=== PATIENT | male | born 1990 | race Caucasian/White ===

== ENCOUNTER → 2020-06-20 | Emergency (ER) | payer OTHER ==
[~2020-06-20] MED LIST: LIDOCAINE 1% MDV 20ML VIAL As Ordered ONE
== END | disposition home or self-care (01) ==
LOC: M ED 22:10
DX: S61.211A Laceration without foreign body of left index finger without damage to nail, initial encounter (principal); W27.8XXA Contact with other nonpowered hand tool, initial encounter; Y92.099 Unspecified place in other non-institutional residence as the place of occurrence of the external cause; Y93.9 Activity, unspecified; Y99.9 Unspecified external cause status

== ENCOUNTER 2020-07-15 19:34 | Emergency (ER) | payer OTHER ==
[~2020-07-15] VITALS: Ht 175.3 cm; Wt 69.8 kg
[2020-07-15 19:34] VITALS: BP 127/69
[2020-07-15 20:21] LABS: BASO % 0.5 % (0.0-1.0); EOS # 0.5 10^3/uL (0.0-0.5); EOS % 5.8 % (0.0-3.0); HEMATOCRIT 41.8 % (42.0-52.0); HEMOGLOBIN 14.7 g/dl (13.5-17.5); LYMPH # 2.7 10^3/uL (1.5-5.0); LYMPH % 32.8 % (24.0-44.0); MEAN CORPUSCULAR HEMOGLOBIN 31.7 pg (27.0-33.0); MEAN CORPUSCULAR HGB CONC 35.2 g/dl (32.0-36.5); MEAN CORPUSCULAR VOLUME 90.3 fl (80.0-96.0); MONO # 0.7 10^3/uL (0.0-0.8); MONO % 8.2 % (0.0-5.0); NEUTROPHILS # 4.2 10^3/uL (1.5-8.5); NEUTROPHILS % 52.5 % (36.0-66.0); PLATELET COUNT, AUTOMATED 221 10^3/uL (150-450); RED BLOOD COUNT 4.63 10^6/uL (4.30-6.10); WHITE BLOOD COUNT 8.1 10^3/uL (4.0-10.0)
[2020-07-15 20:49] LABS: BLOOD UREA NITROGEN 14 MG/DL (7-18); CALCIUM LEVEL 9.5 MG/DL (8.5-10.1); CARBON DIOXIDE LEVEL 32 MEQ/L (21-32); CHLORIDE LEVEL 104 MEQ/L (98-107); CPK CREATINE PHOSPHOKINASE 253 U/L (39-308); CREATININE FOR GFR 0.88 MG/DL (0.70-1.30); FREE T4 0.89 NG/DL (0.76-1.46); GLOMERULAR FILTRATION RATE > 60.0 (>60); GLUCOSE, FASTING 86 MG/DL (70-100); MB/CK RELATIVE INDEX 0.79 (< OR =4); POTASSIUM SERUM 3.8 MEQ/L (3.5-5.1); SODIUM LEVEL 138 MEQ/L (136-145); TROPONIN I < 0.02 NG/ML (< 0.10)
[2020-07-15 21:07] LABS: PROTHROMBIN TIME 13.4 SECONDS (11.8-14.0)
[2020-07-15 21:08] LABS: PARTIAL THROMBOPLASTIN TIME 29.4 SECONDS (25.0-38.4)
--- NOTE | 2020-07-15 21:25 | REPVR ---
PROCEDURE INFORMATION: Exam: XR Chest, 1 View Exam date and time: 07/15/2020 8:49 PM Age: 29 years old Clinical indication: Other: Chest pain TECHNIQUE: Imaging protocol: XR of the chest Views: 1 view. COMPARISON: No relevant prior studies available. FINDINGS: Lungs: Unremarkable. No consolidation. Pleural space: Unremarkable. No pleural effusion. No pneumothorax. Heart/Mediastinum: Unremarkable. No cardiomegaly. Bones/joints: Unremarkable. IMPRESSION: No acute findings. Electronically signed by: Thor Albrecht On 07/15/2020 21:25:23 PM
[2020-07-15 21:36] LABS: D-DIMER QUANT < 270 ng/ml (<500)
--- NOTE | 2020-07-21 19:31 | ECGEPIP ---
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
== END 2020-07-15 22:30 | disposition home or self-care (01) ==
LOC: M ED 19:34
DX: R07.9 Chest pain, unspecified (principal); G47.00 Insomnia, unspecified

== ENCOUNTER 2020-10-09 19:37 | Emergency (ER) | payer OTHER ==
[~2020-10-09] VITALS: Ht 172.7 cm; Wt 70.3 kg
[2020-10-09] MEDS ORDERED: NITROGLYCERIN 0.4 MG SUBL TABLET SL PRN (22:00)
[2020-10-09] MEDS ORDERED: ASPIRIN 81 MG CHEW TABLET PO ONE (22:00)
[2020-10-09 22:21] VITALS: BP 147/92
[2020-10-09 22:33] LABS: BASO % 0.4 % (0.0-1.0); EOS # 0.8 10^3/uL (0.0-0.5); EOS % 9.5 % (0.0-3.0); HEMATOCRIT 41.1 % (42.0-52.0); HEMOGLOBIN 14.1 g/dl (13.5-17.5); LYMPH # 3.3 10^3/uL (1.5-5.0); LYMPH % 40.5 % (24.0-44.0); MEAN CORPUSCULAR HEMOGLOBIN 30.7 pg (27.0-33.0); MEAN CORPUSCULAR HGB CONC 34.3 g/dl (32.0-36.5); MEAN CORPUSCULAR VOLUME 89.5 fl (80.0-96.0); MONO # 0.8 10^3/uL (0.0-0.8); MONO % 9.3 % (0.0-5.0); NEUTROPHILS # 3.2 10^3/uL (1.5-8.5); NEUTROPHILS % 40.2 % (36.0-66.0); PLATELET COUNT, AUTOMATED 249 10^3/uL (150-450); RED BLOOD COUNT 4.59 10^6/uL (4.30-6.10); WHITE BLOOD COUNT 8.1 10^3/uL (4.0-10.0)
--- NOTE | 2020-10-09 22:41 | REPVR ---
PROCEDURE INFORMATION: Exam: XR Chest, 2 Views Exam date and time: 10/09/2020 10:12 PM Age: 29 years old Clinical indication: Other: Cp; Additional info: Chest pain TECHNIQUE: Imaging protocol: XR of the chest Views: 2 views. COMPARISON: CR PORTABLE CHEST X-RAY 07/15/2020 8:47 PM FINDINGS: Lungs: Unremarkable. No consolidation. Pleural space: Unremarkable. No pleural effusion. No pneumothorax. Heart/Mediastinum: Unremarkable. No cardiomegaly. Bones/joints: Unremarkable. IMPRESSION: No acute findings. Electronically signed by: Thor Albrecht On 10/09/2020 22:41:26 PM
[2020-10-09 22:45] LABS: INR 0.94; PROTHROMBIN TIME 12.8 SECONDS (12.5-14.3)
[2020-10-09 23:15] VITALS: BP 115/60
[2020-10-09 23:24] LABS: ALBUMIN 4.3 GM/DL (3.2-5.2); ALT/SGPT 24 U/L (12-78); BILIRUBIN,DIRECT < 0.1 MG/DL (0.0-0.2); BILIRUBIN,TOTAL 0.4 MG/DL (0.2-1.0); BLOOD UREA NITROGEN 13 MG/DL (7-18); CALCIUM LEVEL 9.1 MG/DL (8.5-10.1); CARBON DIOXIDE LEVEL 28 MEQ/L (21-32); CHLORIDE LEVEL 105 MEQ/L (98-107); CPK CREATINE PHOSPHOKINASE 184 U/L (39-308); CREATININE FOR GFR 0.74 MG/DL (0.70-1.30); GLOMERULAR FILTRATION RATE > 60.0 (>60); GLUCOSE, FASTING 85 MG/DL (70-100); MB/CK RELATIVE INDEX 0.54 (< OR =4); NT-PRO BNP < 5 PG/ML (<125); POTASSIUM SERUM 4.5 MEQ/L (3.5-5.1); SODIUM LEVEL 140 MEQ/L (136-145); TOTAL PROTEIN 7.5 GM/DL (6.4-8.2); TROPONIN I < 0.02 NG/ML (< 0.10)
--- NOTE | 2020-10-10 16:39 | ECGEPIP ---
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
== END 2020-10-10 | disposition home or self-care (01) ==
LOC: M ED 19:37
DX: R07.89 Other chest pain (principal); R06.02 Shortness of breath

== ENCOUNTER 2022-06-06 15:12 | Emergency (ER) | payer BC, OTHER ==
[~2022-06-06] VITALS: Ht 177.8 cm; Wt 71.7 kg
[2022-06-06] MEDS ORDERED: HYDR-643 PO (15:18)
[2022-06-06] MEDS ORDERED: NS 1,000 ML IV ONE (16:40)
[2022-06-06 17:24] LABS: BASO % 0.4 % (0.0-1.0); EOS # 0.7 10^3/uL (0.0-0.5); HEMATOCRIT 42.3 % (42.0-52.0); HEMOGLOBIN 14.6 g/dl (13.5-17.5); LYMPH # 2.4 10^3/uL (1.5-5.0); MEAN CORPUSCULAR HEMOGLOBIN 30.9 pg (27.0-33.0); MEAN CORPUSCULAR HGB CONC 34.5 g/dl (32.0-36.5); MEAN CORPUSCULAR VOLUME 89.4 fl (80.0-96.0); MONO # 0.6 10^3/uL (0.0-0.8); MONO % 8.9 % (2.0-8.0); NEUTROPHILS # 3.5 10^3/uL (1.5-8.5); NEUTROPHILS % 48.4 % (36.0-66.0); PLATELET COUNT, AUTOMATED 231 10^3/uL (150-450); RED BLOOD COUNT 4.73 10^6/uL (4.30-6.10); WHITE BLOOD COUNT 7.2 10^3/uL (4.0-10.0)
[2022-06-06 17:51] LABS: ALBUMIN 4.6 GM/DL (3.2-5.2); ALT/SGPT 22 U/L (12-78); BILIRUBIN,DIRECT < 0.1 MG/DL (0.0-0.2); BILIRUBIN,TOTAL 0.4 MG/DL (0.2-1.0); C REACTIVE PROTEIN QUANTITATIV < 0.30 MG/DL (0.00-0.30); FREE T4 0.74 NG/DL (0.76-1.46); LIPASE 128 U/L (73-393); NT-PRO BNP 15 PG/ML (<125); TOTAL PROTEIN 7.7 GM/DL (6.4-8.2)
[2022-06-06 18:32] LABS: ERYTHROCYTE SEDIMENTATION RATE 4 mm/hr (0-15)
[2022-06-06] MEDS ORDERED: KETOROLAC 30 MG/ML 1ML VIAL IV ONE (19:05)
[2022-06-06] MEDS ORDERED: ISOVUE-370 76% 100ML VIAL As Ordered ONE (19:16)
[2022-06-06 21:13] VITALS: BP 129/72
== END 2022-06-06 21:29 | disposition home or self-care (01) ==
LOC: M ED 15:12
DX: R07.89 Other chest pain (principal); R42 Dizziness and giddiness; I45.19 Other right bundle-branch block; F41.9 Anxiety disorder, unspecified
CPT/HCPCS: 36415; 71275; 80047; 80076; 83690; 83880; 84439; 84443; 84484; 85025; 85652; 86140; 93005; 99284; J1885; Q9967

== ENCOUNTER 2022-08-04 12:50 | Emergency (ER) | payer BC ==
[~2022-08-04] VITALS: Ht 182.9 cm; Wt 72.2 kg
[~2022-08-04 12:50] MED LIST changes: +HYDR-643 PO; -LIDOCAINE 1% MDV 20ML VIAL As Ordered ONE
[2022-08-04] MEDS ORDERED: DULO1CAP4 PO (13:13)
[2022-08-04 15:44] LABS: GC DNA AMPLIFICATION NEGATIVE (NEGATIVE)
[2022-08-04 16:06] LABS: BASO % 0.5 % (0.0-1.0); EOS # 0.6 10^3/uL (0.0-0.5); EOS % 7.5 % (0.0-3.0); HEMATOCRIT 44.4 % (42.0-52.0); HEMOGLOBIN 15.5 g/dl (13.5-17.5); LYMPH # 2.4 10^3/uL (1.5-5.0); LYMPH % 28.9 % (24.0-44.0); MEAN CORPUSCULAR HEMOGLOBIN 31.4 pg (27.0-33.0); MEAN CORPUSCULAR HGB CONC 34.9 g/dl (32.0-36.5); MEAN CORPUSCULAR VOLUME 89.9 fl (80.0-96.0); MONO # 0.6 10^3/uL (0.0-0.8); MONO % 7.4 % (2.0-8.0); NEUTROPHILS # 4.6 10^3/uL (1.5-8.5); NEUTROPHILS % 55.6 % (36.0-66.0); PLATELET COUNT, AUTOMATED 256 10^3/uL (150-450); RED BLOOD COUNT 4.94 10^6/uL (4.30-6.10); WHITE BLOOD COUNT 8.4 10^3/uL (4.0-10.0)
[2022-08-04 16:47] VITALS: BP 137/71
== END 2022-08-04 17:02 | disposition home or self-care (01) ==
LOC: M ED 12:50
DX: R31.9 Hematuria, unspecified (principal); Z87.442 Personal history of urinary calculi

== ENCOUNTER 2022-08-18 00:31 | Emergency (ER) | payer BC ==
[~2022-08-18] VITALS: Ht 175.3 cm; Wt 70.9 kg
[~2022-08-18 00:31] MED LIST changes: +DULO1CAP4 PO
[2022-08-18 01:07] LABS: BASO % 0.5 % (0.0-1.0); EOS # 0.5 10^3/uL (0.0-0.5); HEMATOCRIT 42.1 % (42.0-52.0); HEMOGLOBIN 14.9 g/dl (13.5-17.5); LYMPH # 3.8 10^3/uL (1.5-5.0); LYMPH % 44.6 % (24.0-44.0); MEAN CORPUSCULAR HEMOGLOBIN 31.3 pg (27.0-33.0); MEAN CORPUSCULAR HGB CONC 35.4 g/dl (32.0-36.5); MEAN CORPUSCULAR VOLUME 88.4 fl (80.0-96.0); MONO # 0.8 10^3/uL (0.0-0.8); MONO % 9.2 % (2.0-8.0); NEUTROPHILS # 3.4 10^3/uL (1.5-8.5); NEUTROPHILS % 39.6 % (36.0-66.0); PLATELET COUNT, AUTOMATED 231 10^3/uL (150-450); RED BLOOD COUNT 4.76 10^6/uL (4.30-6.10); WHITE BLOOD COUNT 8.6 10^3/uL (4.0-10.0)
[2022-08-18 01:43] LABS: CPK CREATINE PHOSPHOKINASE 269 U/L (39-308)
[2022-08-18 02:01] LABS: ALBUMIN 4.7 GM/DL (3.2-5.2); ALT/SGPT 24 U/L (12-78); BILIRUBIN,DIRECT 0.1 MG/DL (0.0-0.2); BILIRUBIN,TOTAL 0.5 MG/DL (0.2-1.0); BLOOD UREA NITROGEN 14 MG/DL (7-18); CALCIUM LEVEL 9.9 MG/DL (8.5-10.1); CARBON DIOXIDE LEVEL 31 MEQ/L (21-32); CHLORIDE LEVEL 104 MEQ/L (98-107); CREATININE FOR GFR 0.88 MG/DL (0.70-1.30); GLOMERULAR FILTRATION RATE > 60.0 (>60); GLUCOSE, FASTING 87 MG/DL (70-100); POTASSIUM SERUM 3.8 MEQ/L (3.5-5.1); SODIUM LEVEL 140 MEQ/L (136-145); TOTAL PROTEIN 7.9 GM/DL (6.4-8.2)
[2022-08-18 04:22] VITALS: BP 124/65
[2022-08-18] MEDS ORDERED: NAPR-837 PO ×2 (05:13→05:14)
[2022-08-18 06:09] LABS: GC DNA AMPLIFICATION NEGATIVE (NEGATIVE)
== END 2022-08-18 05:42 | disposition home or self-care (01) ==
LOC: M ED 00:31
DX: N43.3 Hydrocele, unspecified (principal); F41.1 Generalized anxiety disorder; Z79.899 Other long term (current) drug therapy

== ENCOUNTER 2023-03-06 16:43 | Emergency (ER) | payer BC ==
[~2023-03-06] VITALS: Ht 175.3 cm; Wt 71.2 kg
[~2023-03-06 16:43] MED LIST changes: +NAPR-837 PO
[2023-03-06] MEDS ORDERED: FLON1SPR NARES (16:50)
[2023-03-06] MEDS ORDERED: LEXA1TAB (16:50)
[2023-03-06 18:28] LABS: BASO % 0.3 % (0.0-1.0); EOS # 0.4 10^3/uL (0.0-0.5); EOS % 5.5 % (0.0-3.0); HEMATOCRIT 44.6 % (42.0-52.0); HEMOGLOBIN 15.4 g/dl (13.5-17.5); LYMPH # 2.4 10^3/uL (1.5-5.0); LYMPH % 33.5 % (24.0-44.0); MEAN CORPUSCULAR HGB CONC 34.5 g/dl (32.0-36.5); MEAN CORPUSCULAR VOLUME 89.9 fl (80.0-96.0); MONO # 0.7 10^3/uL (0.0-0.8); MONO % 9.4 % (2.0-8.0); NEUTROPHILS # 3.7 10^3/uL (1.5-8.5); NEUTROPHILS % 51.2 % (36.0-66.0); PLATELET COUNT, AUTOMATED 248 10^3/uL (150-450); RED BLOOD COUNT 4.96 10^6/uL (4.30-6.10); WHITE BLOOD COUNT 7.3 10^3/uL (4.0-10.0)
[2023-03-06 18:52] LABS: ALBUMIN 4.8 G/DL (3.2-5.2); ALKALINE PHOSPHATASE 68 U/L (46-116); ALT/SGPT 22 U/L (7.0-40); AST/SGOT 34 U/L (<34); BILIRUBIN,TOTAL 0.5 MG/DL (0.3-1.2); BLOOD UREA NITROGEN 8 MG/DL (9-23); CALCIUM LEVEL 9.8 MG/DL (8.5-10.1); CARBON DIOXIDE LEVEL 32 MMOL/L (20-31); CHLORIDE LEVEL 104 MMOL/L (98-107); CREATININE FOR GFR 0.75 MG/DL (0.70-1.30); GLOMERULAR FILTRATION RATE > 60.0 (>60); GLUCOSE, FASTING 89 MG/DL (60-100); POTASSIUM SERUM 4.1 MMOL/L (3.5-5.1); SODIUM LEVEL 140 MMOL/L (136-145)
[2023-03-06 21:23] VITALS: BP 120/74
== END 2023-03-06 21:24 | disposition home or self-care (01) ==
LOC: M ED 16:43
DX: R42 Dizziness and giddiness (principal); M54.2 Cervicalgia; F41.9 Anxiety disorder, unspecified; Z87.442 Personal history of urinary calculi

== ENCOUNTER → 2023-04-28 | Outpatient (CLI) | payer OTHER ==
[~2023-04-28] MED LIST changes: +E-Z-GAS II EFFERVESCENT PACKET (SODIUM BICARB./CITRIC ACID/SIMETHICONE) As Ordered ONE; +E-Z-HD 98% w/w 340GM SUSP BTL As Ordered ONE; +E-Z-PAQUE 96% w/w SUSP 176GM BTL As Ordered ONE; +FLON1SPR NARES; +LEXA1TAB
== END ==
LOC: M RAD 09:02
DX: R13.14 Dysphagia, pharyngoesophageal phase (principal)

== ENCOUNTER → 2023-07-05 | Outpatient (CLI) | payer OTHER ==
[~2023-07-05] MED LIST changes: -E-Z-GAS II EFFERVESCENT PACKET (SODIUM BICARB./CITRIC ACID/SIMETHICONE) As Ordered ONE; -E-Z-HD 98% w/w 340GM SUSP BTL As Ordered ONE; -E-Z-PAQUE 96% w/w SUSP 176GM BTL As Ordered ONE; +ISOVUE-370 76% 100ML VIAL As Ordered ONE
== END ==
LOC: M RAD 13:33
PROVIDERS: ATTEND Student in an Organized Health Care Education/Training Program
DX: R51.9 Headache, unspecified (principal)
CPT/HCPCS: 70498; Q9967

== ENCOUNTER → 2023-10-24 | Outpatient (CLI) | payer OTHER ==
[~2023-10-24] MED LIST changes: -ISOVUE-370 76% 100ML VIAL As Ordered ONE; +PRED20TA PO
== END ==
LOC: M RAD 12:29
PROVIDERS: ATTEND Otolaryngology
DX: J32.8 Other chronic sinusitis (principal); J34.2 Deviated nasal septum; J34.89 Other specified disorders of nose and nasal sinuses

== ENCOUNTER → 2024-03-01 | Outpatient (CLI) | payer OTHER ==
[~2024-03-01] MED LIST changes: +BARIUM SULFATE 700 MG TABLET (E-Z-DISK) As Ordered ONE; +E-Z-PAQUE 96% w/w SUSP 176GM BTL As Ordered ONE; +VARIBAR NECTAR 40% w/v 240ML SUSP BTL As Ordered ONE; +VARIBAR PUDDING 40% w/v 230ML TUBE As Ordered ONE
== END ==
LOC: M RAD 10:59
PROVIDERS: ATTEND Physician Assistant
DX: R13.12 Dysphagia, oropharyngeal phase (principal)

== ENCOUNTER → 2024-10-21 | Outpatient (REF) | payer OTHER, MEDICARE ==
[~2024-10-21] MED LIST changes: -BARIUM SULFATE 700 MG TABLET (E-Z-DISK) As Ordered ONE; -E-Z-PAQUE 96% w/w SUSP 176GM BTL As Ordered ONE; -VARIBAR NECTAR 40% w/v 240ML SUSP BTL As Ordered ONE; -VARIBAR PUDDING 40% w/v 230ML TUBE As Ordered ONE
== END ==
LOC: M LAB REF 21:53
PROVIDERS: ATTEND Physician Assistant Medical
DX: J03.90 Acute tonsillitis, unspecified (principal)

== ENCOUNTER → 2025-03-14 | Outpatient (CLI) | payer OTHER | LOC: M RAD 09:13 | PROVIDERS: ATTEND Chiropractor | DX: M47.814 Spondylosis without myelopathy or radiculopathy, thoracic region (principal) ==